=== PATIENT | male | born 1980 | race Caucasian/White ===

== ENCOUNTER → 2020-11-30 10:02 | Outpatient (CLI) | payer OTHER, SELFPAY ==
--- NOTE | 2020-11-30 | DI.MRI.S_ITS ---
PROCEDURE: MR HEAD/BRAIN WO/W CON INDICATIONS: Intracranial space-occupying lesion TECHNIQUE: Noncontrast axial T1 spin echo, axial T2 fast spin echo, sagittal and axial FLAIR, coronal T2 fast spin echo, axial gradient echo, axial diffusion and ADC through the brain. After the administration of contrast, axial and coronal 3D VIBE or T1 spin echo with fat saturation through the brain. COMPARISON: Outside Facility, RG, CT HEAD W/O CONTRAST, 11/29/2020, 13:15. Outside Facility, RG, CT HEAD / NECK ANGIO, 11/29/2020, 13:15. FINDINGS: Image quality: Excellent. CSF Spaces: Basal cisterns are patent. No extra-axial fluid collections. Ventricles are normal in size and shape. Brain: Within the left cerebellum, correspond to previously identified abnormality, there is a partially enhancing mass. The lesion in its entirety measures 1.9 cm AP x 1.5 cm transverse by 1.6 cm craniocaudal. There is an enhancing nodular component measuring 1.2 cm AP x 1.3 cm transverse by 0.9 cm craniocaudal. The non-enhancing component is hypointense on T1 and hyperintense on T2. The lesion overall demonstrates no restricted diffusion. No mass affect. There is minimal surrounding edema. The brainstem appears normal. Diffusion-weighted images demonstrate no acute ischemic insults. No chronic ischemic insults. Normal intravascular flow voids are present. Skull and face: Calvarial marrow is normal in signal. Orbits appear normal. Sinuses: Sinuses and mastoids appear clear. IMPRESSION: 1. 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 While there is minimal edema, no mass effect is identified. Overall primary differential diagnosis includes hemangioblastoma, cystic astrocytoma as well as metastatic disease. Further evaluation with neurosurgery is recommended. Dictated by: Mattie Cardenas M.D. on 11/30/2020 at 11:40 Approved by: Mattie Cardenas M.D. on 11/30/2020 at 11:55
== END ==
PROVIDERS: Family Provider Family Medicine; PCP Family Medicine; Referring Provider Emergency Medicine; Visit Provider Emergency Medicine
DX: R90.0 Intracranial space-occupying lesion found on diagnostic imaging of central nervous system (principal)
CPT/HCPCS: 70553

== ENCOUNTER → 2020-12-20 17:22 | Outpatient (CLI) | payer OTHER, SELFPAY ==
--- NOTE | 2020-12-20 17:24 | DI.MRI.S_ITS ---
PROCEDURE: MR CERVICAL SPINE WO CON INDICATIONS: Spinal stenosis, cervical region TECHNIQUE: Noncontrast sagittal T1 spin echo and T2 fast spin echo, sagittal STIR, foraminal oblique sagittal T2 fast spin echo, and axial gradient echo or T2 fast spin echo through the cervical spine. COMPARISON: [facility], MR, MR HEAD/BRAIN WO/W CON, 11/30/2020, 10:18. Outside Facility, RG, CT HEAD / NECK ANGIO, 11/29/2020, 13:15. FINDINGS: Image quality: Excellent. Alignment and Curvature: There is minimal retrolisthesis seen at the C3-C4 level. Bone Marrow: Marrow demonstrates normal overall signal. Spinal Cord: Visualized spinal cord has normal size and signal. No cerebellar tonsillar herniation. Paraspinous Soft Tissues: No paravertebral masses. Prevertebral soft tissues are normal in thickness. Within the left cerebellum inferiorly, there is visualization the patient's known mass that measures up to 1.5 cm, as on series 7, image 15. C2-C3: No significant abnormality is seen. C3-C4: Moderate loss of disc height is seen. Loss of disc signal is seen. Moderate disc osteophyte complex is seen, which is eccentric to the right. Mild facet joint hypertrophy is seen. There is at least moderate right-sided and moderate left-sided neural foraminal narrowing seen. Moderate central canal narrowing is seen. There is associated mass effect upon the ventral spinal cord. C4-C5: The disc height is well-preserved. Loss of disc signal is seen at this level. A mild degree of generalized disc osteophyte complex is seen. Mild facet joint hypertrophy is seen. There is mild right-sided and no left-sided neural foraminal narrowing seen. No significant central canal narrowing is seen. C5-C6: The disc height is well-preserved. Loss of disc signal is seen at this level. A mild degree of generalized disc osteophyte complex is seen. Moderate facet joint hypertrophy is seen. The there is moderate right-sided and mild left-sided neural foraminal narrowing seen. No significant central canal narrowing is seen. C6-C7: The disc height is well-preserved. Loss of disc signal is seen at this level. A mild degree of generalized disc osteophyte complex is seen. Mild to moderate facet hypertrophy is seen. Mild to moderate bilateral neural foraminal narrowing can be seen. No significant central canal narrowing is seen. C7-T1: Normal appearance. IMPRESSION: Focal C3-C4 degenerative change is seen, with milder degenerative changes elsewhere. There is partial visualization of the known left cerebellar mass. No findings of involvement of the cervical spine with neoplasm, to the limits of this noncontrast study. Dictated by: Oskar Jo M.D. on 12/21/2020 at 10:24 Approved by: Oskar Jo M.D. on 12/21/2020 at 10:32
== END ==
PROVIDERS: Family Provider Family Medicine; PCP Family Medicine; Visit Provider Neurological Surgery
DX: M48.02 Spinal stenosis, cervical region (principal); M47.812 Spondylosis without myelopathy or radiculopathy, cervical region; G93.9 Disorder of brain, unspecified
CPT/HCPCS: 72141

== ENCOUNTER → 2021-06-04 16:26 | Outpatient (CLI) | payer OTHER, SELFPAY ==
--- NOTE | 2021-06-04 | DI.MRI.S_ITS ---
PROCEDURE: MR CERVICAL SPINE WO CON INDICATIONS: NEOPLASM OF BRAIN TECHNIQUE: Noncontrast sagittal T1 spin echo and T2 fast spin echo, sagittal STIR, foraminal oblique sagittal T2 fast spin echo, and axial gradient echo or T2 fast spin echo through the cervical spine. COMPARISON: [facility], MR, MR HEAD/BRAIN WO/W CON, 11/30/2020, 10:18. [facility], MR, MR HEAD/BRAIN WO/W CON, 06/04/2021, 16:41. FINDINGS: Image quality: Excellent. Alignment and Curvature: There is normal bony alignment. Bone Marrow: Marrow demonstrates normal overall signal. Spinal Cord: Visualized spinal cord has normal size and signal. No cerebellar tonsillar herniation. Partially visualized lesion in the left cerebellar hemisphere with detailed description in dedicated MRI of the brain study obtained June 04, 2021 and November 30, 2020. Paraspinous Soft Tissues: No paravertebral masses. Prevertebral soft tissues are normal in thickness. C2-C3: Loss of disc signal. No central stenosis. No neural foraminal narrowing. No neural compression. C3-C4: Loss of disc signal and height. Mild, diffuse disc bulge. Right central disc protrusion. Mild narrowing of the central canal. Mild to moderate right and mild left neural foraminal narrowing. No neural compression. C4-C5: Loss of disc signal. No central stenosis. No neural foraminal narrowing. No neural compression. C5-C6: Loss of disc signal. Minimal, diffuse disc bulge. No central stenosis. No neural foraminal narrowing. No neural compression. C6-C7: Loss of disc signal. No central stenosis. No neural foraminal narrowing. No neural compression. C7-T1: Normal appearance. IMPRESSION: 1. Multilevel degenerative disc disease. 2. Mild C3-C4 central canal narrowing. 3. [id number] right and mild left C3-C4 neural foraminal narrowing. 4. No neural compression. 5. No abnormal spinal cord signal. No abnormal mass identified. Dictated by: Marcela Patino MD, PhD on 06/04/2021 at 17:04 Approved by: Marcela Patino MD, PhD on 06/04/2021 at 17:11
--- NOTE | 2021-06-04 16:30 | DI.MRI.S_ITS ---
PROCEDURE: MR HEAD/BRAIN WO/W CON INDICATIONS: NEOPLASM OF BRAIN TECHNIQUE: Noncontrast axial T1 spin echo, axial T2 fast spin echo, sagittal and axial FLAIR, coronal T2 fast spin echo, axial gradient echo, axial diffusion and ADC through the brain. After the administration of contrast, axial and coronal 3D VIBE or T1 spin echo with fat saturation through the brain. COMPARISON: Outside Facility, RG, CT HEAD / NECK ANGIO, 11/29/2020, 13:15. Outside Film, CT, CT HEAD WITHOUT CONTRAST, 11/29/2020, 13:15. Outside Film, CT, CT ANGIO HEAD AND NECK, 11/29/2020, 13:15. Outside Facility, RG, CT HEAD W/O CONTRAST, 11/29/2020, 13:15. [facility], , MR HEAD/BRAIN WO/W CON, 11/30/2020, 10:18. FINDINGS: Image quality: Excellent. CSF Spaces: Basal cisterns are patent. No extra-axial fluid collections. Ventricles are normal in size and shape. Brain: Within the inferior left cerebellum, there is again seen a cystic and solid mass, with an avidly enhancing cystic component. This now measures 1.7 cm transversely, with an AP extent of 2 cm, and a craniocaudal extent of 2 cm. This has increased in size compared to the prior examination. No midline shift. The brainstem appears normal. Diffusion-weighted images demonstrate no acute ischemic insults. No chronic ischemic insults. Normal intravascular flow voids are present. Skull and face: Calvarial marrow is normal in signal. Orbits appear normal. Sinuses: Sinuses and mastoids appear clear. IMPRESSION: Interval increased size of the previously seen cystic and solid mass involving the inferior aspect of the left cerebellar hemisphere. Differential diagnosis is unchanged. No new masses are seen. Dictated by: Oskar Jo M.D. on 06/04/2021 at 16:49 Approved by: Oskar Jo M.D. on 06/04/2021 at 16:52
== END ==
PROVIDERS: Family Provider Family Medicine; PCP Family Medicine; Referring Provider Neurological Surgery; Visit Provider Neurological Surgery
DX: D49.6 Neoplasm of unspecified behavior of brain (principal); M48.02 Spinal stenosis, cervical region; M50.31 Other cervical disc degeneration, high cervical region
CPT/HCPCS: 70553; 72141